=== PATIENT | female | born 1970 | race American Indian/Alaskan Native ===

== ENCOUNTER 2021-06-17 13:28 | Emergency (ER) | payer OTHER ==
[2021-06-17 13:46] VITALS: BP 166/98
[2021-06-17] MEDS ORDERED: IBUPROFEN 800 MG TAB PO ONE (14:07)
--- NOTE | 2021-06-17 14:50 | XRay Report ---
Lumbar spine 3 views INDICATION: Back pain FINDINGS: Large anterior disc osteophytes at several levels. No severe compression injury. Facet bonilla ges at L5-S1. Signer Name: Wenceslao Liu MD Signed: 06/17/2021 2:45 PM Workstation Name: [facility]
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
== END 2021-06-17 15:36 | disposition home or self-care (01) ==
LOC: ED 13:28
DX: S39.92XA Unspecified injury of lower back, initial encounter (principal); M25.70 Osteophyte, unspecified joint; Z79.899 Other long term (current) drug therapy; V87.7XXA Person injured in collision between other specified motor vehicles (traffic), initial encounter; Y93.89 Activity, other specified; Y92.488 Other paved roadways as the place of occurrence of the external cause; Y99.8 Other external cause status
CPT/HCPCS: 72100; 99283